=== PATIENT | female | born 1945 | race Caucasian/White ===

== ENCOUNTER 2024-03-30 16:26 | Emergency (ER) | payer MEDICAID, SELFPAY ==
[2024-03-30 16:35] VITALS: BP 157/95; PULSE 97; RESP 18; O2SAT 100; BMI 18.1
--- NOTE | 2024-03-30 17:09 | ED.DIZZY ---
HPI - Dizziness General Time Seen by Provider: 17:10 Date Seen: 03/30/24 Chief Complaint: Dizziness/Vertigo Stated Complaint: Vertigo, headache Time Seen by Provider: 03/30/24 17:07 History of Present Illness HPI Narrative: Janae is a very pleasant 78-year-old female with history of hypertension, hyperlipidemia who comes to the emergency room with 5 days of vertigo type symptoms. Patient notes that she awoke on March 26 with vertigo. She notes that she got up and was unsteady as she walked to the kitchen table. She notes that 1 she was up it seemed to improve a little bit but the associated nausea was persistent especially when she was eating. She notes that throughout the day she seemed to have these symptoms especially when she would look down. By the end of the day she was doing a little bit better. However, the symptoms have continued over the past 5 days. She has not had fever or chills. She notes occasionally she will have a fullness in her right ear and the right side of her head hurts like a headache. It is not present at this time. She has not had a cough cold congestion dysuria hematuria. She denies any numbness or tingling, dragging of her of feet or changes in her speech. She has not had any trauma and she is not currently on any blood thinners. Related Data Home Medications ?Medication ?Instructions ?Recorded ?Confirmed lisinopril 5 mg tablet 5 mg PO DAILY 03/30/24 03/30/24 pravastatin 40 mg tablet 40 mg PO DAILY 03/30/24 03/30/24 Previous Rx's ?Medication ?Instructions ?Recorded meclizine 25 mg tablet 25 mg PO TID PRN #30 tabs 03/30/24 Allergies Allergy/AdvReac Type Severity Reaction Status Date / Time No Known Drug Allergies Allergy Verified 03/30/24 16:40 Review of Systems Status of ROS: Reports: 10 or more systems reviewed and unremarkable except as noted in History and below Const: Denies: fever, chills or fatigue Eyes: Denies: change in vision ENMT: Denies: throat pain, neck pain or nasal congestion Cardio: Reports: lightheadedness; Denies: chest pain, edema, swelling of feet/ankles or shortness of breath with exertion Resp: Denies: shortness of breath or cough GI: Reports: nausea; Denies: abdominal pain, vomiting or diarrhea : Denies: painful urination, urinary frequency or urinary urgency Musculo: Denies: back pain, neck pain or extremity pain Integ/Breast: Denies: rash Neuro: Reports: headache Endo: Denies: fatigue PFSH [facility] Social History Smoking Status: Never smoker How often do you have a drink containing alcohol: monthly or less AUDIT-C Alcohol total score: 1 Non-prescribed substance use: denies use service: No Exam Narrative: Exam Narrative: Alert and oriented in no acute distress. Patient is able to communicate with no difficulty. EOM is full and pupils are equal round and reactive. Head is atraumatic normocephalic. Neck is supple. Eyebrow raise smile symmetrical. Tongue is midline. Heart with regular rate and rhythm and lungs are clear bilaterally. Abdomen soft nontender. Upper and lower extremity strength symmetrical. Dexterity noted throughout. No focal neurological deficits. No unusual lower extremity edema or rashes. Hallpike maneuver shows nystagmus on the right. Const: Vital Signs, click to edit/add: Vital Signs - 24 hr 03/30/24 16:35 Pulse Rate [Pulse Oximeter] 97 Respiratory Rate 18 Blood Pressure [Le ft Upper Arm] 157/95 H Pulse Oximetry 100 Oxygen Delivery Me thod Room Air Documenting provider has reviewed patient's vital signs: yes Course Course ED Course: Differential diagnosis includes but is not limited to stroke, labyrinthitis, benign positional vertigo, electrolyte imbalance, urinary tract infection, illness, temporal arteritis.. At this time will place IV and draw labs to include CBC, comprehensive panel, UA, CRP and troponin. Reevaluation(s) Reevaluation #1: Patient noted to be stable during her time here. Head CT without evidence of acute findings. Troponin is negative, CRP within normal limits white count within normal limits creatinine and kidney function normal LFTs normal. Urinalysis suggest possibly a UTI but patient is asymptomatic at this time. Vital Signs Vital signs: Initial Vital Signs Pulse Rate 97 03/30/24 16:35 Respiratory Rate 18 03/30/24 16:35 Blood Pressure 157/95 H 03/30/24 16:35 Blood Pressure Mean 115 H 03/30/24 16:35 Blood Pressure Position Sitting 03/30/24 16:35 Pulse Oximetry 100 03/30/24 16:35 Oxygen Delivery Method Room Air 03/30/24 16:35 Vital Signs Pulse Rate 97 03/30/24 16:35 Respiratory Rate 18 03/30/24 16:35 Blood Pressure 157/95 H 03/30/24 16:35 Pulse Oximetry 100 03/30/24 16:35 Oxygen Delivery Method Room Air 03/30/24 16:35 Pulse Rate 97 03/30/24 16:35 Respiratory Rate 18 03/30/24 16:35 Blood Pressure 157/95 H 03/30/24 16:35 Pulse Oximetry 100 03/30/24 16:35 Oxygen Delivery Method Room Air 03/30/24 16:35 Medications Administered Medications: Discontinued Medications Generic Name Dose Route Start Last Admin Trade Name Freq PRN Reason Stop Dose Admin Lorazepam 0.25 mg 03/30/24 19:17 03/30/24 19:33 Lorazepam 2 Mg/Ml Inj IVP 03/30/24 19:18 0.25 mg ONCE ONE Administration MDM - Dizziness MDM Narrative Medical decision making narrative: 1. Vertigo-most likely benign positional vertigo. Head CT reassuring, Hallpike maneuver and other exam reassuring with no evidence of stroke-like symptoms. Patient noted to have improvement with 0.25 mg Ativan. She will be discharged home at this time. No evidence of hearing loss lesions in the ear to suggest shingles or other significant viral component. Meclizine 25 mg p.o. t.i.d. p.r.n. Number 30 tablets with 1 refill sent to patient's pharmacy. She depart feeling much better. 2. Abnormal urinalysis-patient has no urinary symptoms but certainly some findings that would trigger a urine culture. At this time because of lack of symptoms will hold off on any antibiotics. Patient will be called if this is positive. 3. Disposition-home at this time with her . Feeling much better. Medical Records Attestation: I reviewed the patient's medical records. Lab Data Attestation: I reviewed the patient's lab results. Labs: Lab Results 03/30/24 03/30/24 Range/Units 17:31 17:45 WBC 7.46 (4.50-11.00) K/uL RBC 4.38 (4.00-5.20) m/uL Hgb 13.2 (12.0-16.0) gm/dL Hct 39.1 (33.0-51.0) % MCV 89 (80-100) fL MCH 30 (26-34) pg MCHC 34 (32-36) gm/dL RDW Coeff of Kay 13.3 (11.5-15.5) % Plt Count 285 (140-440) K/uL Neut % (Auto) 67.3 (42.0-72.0) % Lymph % (Auto) 24.7 (20-44) % Carroll % (Auto) 7.2 (0.0-11.0) % Eos % (Auto) 0.3 (0.0-7.0) % Baso % (Auto) 0.4 (0.0-3.0) % Neut # (Auto) 5.02 (1.7-7.0) K/uL Lymph # (Auto) 1.84 (0.90-2.90) K/uL Carroll # (Auto) 0.50 (0.00-0.90) K/UL Eos # (Auto) 0.02 (0.00-0.50) K/uL Baso # (Auto) 0.03 (0.00-0.30) K/uL Abs Immat Gran (auto) 0.01 (0.00-0.30) K/uL Imm/Tot Granulo (auto) 0.1 % ESR 7 (2-20) mm/hr Sodium 134 L (135-149) mmol/L Potassium 4.8 (3.6-5.1) mmol/L Chloride 100 (96-114) mmol/L Carbon Dioxide 28 (20-32) mmol/L Anion Gap 6 L (7-15) mEq/L BUN 15 (7-30) mg/dL Creatinine 0.7 (0.5-1.5) mg/dL Estimated Creat Clear 34.41 Estimated GFR 89 ml/min Glucose 93 (60-115) mg/dL Calcium 9.6 (8.4-10.6) mg/dL Total Bilirubin 0.4 (0.1-1.5) mg/dL AST 28 (12-35) U/L ALT 22 (4-35) U/L Alkaline Phosphatase 50 (40-150) U/L C-Reactive Protein < 0.5 L (0.5-1.0) mg/dL Total Protein 7.1 (6.0-8.3) g/dL Albumin 4.6 (3.3-5.0) g/dL Urine Color Yellow (Yellow) Urine Appearance Clear (Clear) Urine pH 6.0 (5.0-8.5) Ur Specific [place] 1.015 (1.000-1.030) Urine Protein Negative (Negative) Urine Glucose (UA) Negative (Negative) Urine Ketones 1+ A (Negative) Urine Blood Trace-intact A (Negative) Urine Nitrite Negative (Negative) Urine Bilirubin Negative (Negative) Urine Urobilinogen 0.2 (0.2-1.0) Ur Leukocyte Esterase 1+ A (Negative) Urine RBC 2-5 A (0-2) Urine WBC 5-10 A (0-5) Ur Squamous Epith Cells Few (None-Few) Urine Bacteria Few A (None) POC Troponin I 0.01 (0.01-0.04) ng/ml Imaging Data CT scan - head: Attestation: I have reviewed the pertinent imaging results. Discharge Plan Discharge Clinical Impression: Vertigo Patient Disposition: Home, Self-Care Condition: Improved Additional Instructions: Meclizine is a medication that you may be used to help with vertigo. He can be sedating for some people so please do not use alcohol, drive if using this medication. Recommend follow-up with your primary MD. you may want to have your ears irrigated as there is some wax in them. Return to the emergency room for worsening symptoms, onset of numbness tingling weakness of the body and as needed. Prescriptions: New meclizine 25 mg tablet 25 mg PO TID PRNQty: 30 1RF No Action lisinopril 5 mg tablet 5 mg PO DAILY pravastatin 40 mg tablet 40 mg PO DAILY Follow Up/Referrals: Provider,Not a Local [Primary Care Provider] - Stand Alone Forms: [employer] Info Instructions
--- NOTE | 2024-03-30 17:31 | CRLHL7_ITS ---
For Patients: As a result of the Century Cures Act, medical imaging exams and procedure reports are released immediately into your electronic medical record. You may view this report before your referring provider. If you have questions, please contact your health care provider. INDICATION: Stroke. TECHNIQUE: CT of the head without contrast. Coronal and sagittal reformats are included. COMPARISON: None. FINDINGS: No CT evidence of acute cortical infarct. No loss of ramirez white matter differentiation. No hyperdense vessels to suggest intracranial thrombus. No acute intracranial hemorrhage. No mass effect or midline shift. No hydrocephalus or extra-axial collections. Patchy white matter hypoattenuation, typical for chronic microvascular ischemic change. Moderate generalized parenchymal volume loss. Partially empty sella. Intracranial vascular calcifications. No acute osseous abnormalities. Mastoid air cells and paranasal sinuses are clear. Normal soft tissues. IMPRESSION: IMPRESSION:1. No CT evidence of acute cortical infarct. No acute intracranial hemorrhage. No other acute intracranial findings. Please note that all CT scans at this facility use dose modulation, iterative reconstruction, and/or weight-based dosing when appropriate to reduce radiation dose to as low as reasonably achievable. Dictated by Josue Erickson MD @ 03/30/2024 6:05:28 PM (Electronically Signed)
[2024-03-30 17:54] LABS: Basophils Absolute Auto 0.03 K/uL (0.00-0.30); Basophils Percent Auto 0.4 % (0.0-3.0); Eosinophils Absolute Auto 0.02 K/uL (0.00-0.50); Eosinophils Percent Auto 0.3 % (0.0-7.0); Hematocrit 39.1 % (33.0-51.0); Hemoglobin* 13.2 gm/dL (12.0-16.0); Immature Granulocytes Abs Auto 0.01 K/uL (0.00-0.30); Immature Granulocytes Pct Auto 0.1 %; Lymphocytes Absolute Auto 1.84 K/uL (0.90-2.90); Lymphocytes Percent Auto 24.7 % (20-44); Mean Corpuscular HGB Conc 34 gm/dL (32-36); Mean Corpuscular Hemoglobin 30 pg (26-34); Mean Corpuscular Volume 89 fL (80-100); Monocytes Percent Auto 7.2 % (0.0-11.0); Neutrophils Absolute Auto 5.02 K/uL (1.7-7.0); Neutrophils Percent Auto 67.3 % (42.0-72.0); Platelet Count* 285 K/uL (140-440); RDW Coefficient of Variation % 13.3 % (11.5-15.5); Red Blood Count 4.38 m/uL (4.00-5.20); White Blood Count* 7.46 K/uL (4.50-11.00)
[2024-03-30 17:56] LABS: Troponin, Point-of-Care* 0.01 ng/ml (0.01-0.04)
[2024-03-30 17:58] LABS: Slide Review Reflex No
[2024-03-30 18:13] LABS: Appearance Urine Clear (Clear); Bilirubin Urine Negative (Negative); Blood Urine Trace-intact (Negative); Color Urine Yellow (Yellow); Glucose Urine Negative (Negative); Ketones Urine 1+ (Negative); Leukocyte Esterase Urine 1+ (Negative); Nitrite Urine Negative (Negative); Protein Urine Negative (Negative); Specific Gravity Urine 1.015 (1.000-1.030); Urobilinogen Urine 0.2 (0.2-1.0)
[2024-03-30 18:20] LABS: Albumin* 4.6 g/dL (3.3-5.0); Chloride* 100 mmol/L (96-114)
[2024-03-30 18:21] LABS: Potassium* 4.8 mmol/L (3.6-5.1); Sodium* 134 mmol/L (135-149)
[2024-03-30 18:23] LABS: Bilirubin Total* 0.4 mg/dL (0.1-1.5); Carbon Dioxide* 28 mmol/L (20-32); Creatinine* 0.7 mg/dL (0.5-1.5); Est. Creatinine Clearance* 34.41; Estimated Glomerular Filt Rate 89 ml/min
[2024-03-30 18:24] LABS: Alanine Aminotransferase* 22 U/L (4-35); Alkaline Phosphatase* 50 U/L (40-150); Anion Gap 6 mEq/L (7-15); Aspartate Amino Transferase* 28 U/L (12-35); Blood Urea Nitrogen* 15 mg/dL (7-30); Calcium* 9.6 mg/dL (8.4-10.6); Glucose* 93 mg/dL (60-115); Total Protein* 7.1 g/dL (6.0-8.3)
[2024-03-30 18:27] LABS: C Reactive Protein* < 0.5 mg/dL (0.5-1.0)
--- OUTSIDE RECORDS SUMMARY | 2024-03-30 18:35 | XMS_ITS | Referral Summary ---
Author Organization [facility] Address [address] [place] [id number] Care Team Providers Care [employer] Mill Tender Name Role Phone Carito Hernandez MD Primary Care Provider + [phone] Allergies Active Allergy Reactions Criticality Noted Date Comments Atorvastatin 05/25/2014 Muscle spasms Simvastatin 05/25/2014 Muscle spasms Medications multivitamin, therapeutic with minerals (MULTI-VITAMIN) TABS Take 1 tablet by mouth daily Active Townsend-3 Fatty Acids (OMEGA-3 FISH OIL PO) Take 1 g by mouth 2 times daily (with meals) Active Calcium Carb-Cholecalcif autumn (CALCIUM 600 + D PO) Take 1 tablet by mouth 2 times daily Active Probiotic Product (PROBIOTIC DAILY PO) Take by mouth daily Active Psyllium (METAMUCIL PO) Take by mouth 2 times daily Active Biotin 10 MG CAPS Take 10 mg by mouth daily Active pravastatin (PRAVACHOL) 20 MG tablet Take 20 mg by mouth daily Active Active Problems Problem Noted Date Diagnosed Date 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 Social History Tobacco Use Types Packs/Day Years Used Date Smoking Tobacco: Never Smokeless Tobacco: Never Alcohol Use Standard Drinks/Week Comments Yes 0 (1 standard drink = 0.6 oz pur e alcohol) 3-4 glasses per week Adolescent Education Answer Date Record ed Getting School Help Needed Not on file 12/14 Comments No Sex and Gender Information Value Date Recorded Sex Assigned at Not on file Legal Sex Female 4:36 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 Gender Identity Not on file Sexual Orientation Not on file Last Filed Vital Signs Vital Sign Reading Time Taken Comments Blood Pressure 154/85 10/01/2022 11:58 AM CDT Pulse 81 10/01/2022 11:58 AM CDT Temperature 36.4 C (97.5 F) 10/01/2022 11:58 AM CDT Respiratory Rate 16 10/01/2022 11:5 8 AM CDT Oxygen Saturation 99% 10/01/2022 11: 58 AM CDT Inhaled Oxygen Concentration - - Weight 45.7 kg (100 lb 11.2 oz) 023 11:58 AM CDT Height 160 cm (5' 3) 04/20/2020 11:10 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 Body Mass Index 17.84 04/20/2020 11:10 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 Plan of Treatment Not on file Procedures Procedure Name Priority Date/Time Associated Diagnosis Comments GLUCOSE (EXTERNAL RESULT) Routine 08/22/2022 9:43 AM CDT LIPID PANEL (EXTERNAL RESULT) Routine 08/22/2022 9:43 AM CDT HEPATITIS C (HIM EXTERNAL RESULT) Routine 06/26/2021 1:30 PM CDT DEXA - HIM SCAN Routine 04/25/2021 COLONOSCOPY Routine 05/31/2014 10:48 AM CDT from Last 3 Months or Most Recently Relevant to Health Maintenance Results * Lipid Panel (External Result) (08/22/2022 9:43 AM CDT) Cholesterol (External) 195 100 - 199 mg/dL [facility] Triglycerides (External) 74 <150 mg/dL [facility] HDL Cholesterol (External) 72 >40 mg/dL [facility] LDL Cholesterol Calculated (External) 108 <=130 mg/dL [facility] Non HDL Cholesterol (External) 123 <145 mg/dL [facility] Blood 08/22/2022 9:43 AM CDT Narrative [facility] - 08/22/2022 9:43 AM CDT See Care Everywhere-[facility] us Provider Outside LAB - HIM EXTERNAL RESULT Final Result [facility] [address] * Glucose (External Result) (08/22/2022 9:43 AM CDT) Glucose (External) 86 70 - 99 mg/dL [facility] Blood 08/22/2022 9:43 AM CDT Narrative [facility] - 08/22/2022 9:43 AM CDT See Care Everywhere-[facility] us Provider Outside LAB - HIM EXTERNAL RESULT Final Result Performing Organization Address City/[facility]/ZIP Co de Phone Number [facility] [address] * Hepatitis C (HIM External Result) (06/26/2021 1:30 PM CDT) Hep C HIM See Scanned Document [facility] Comment:Non-Reactive 06/26/2021 1:30 PM CDT Narrative [facility] - 06/26/2021 1:30 PM CDT See Care Everywhere-[facility] us Provider Outside LAB - HIM EXTERNAL RESULT Final Result [facility] [address] * (ABNORMAL) DEXA - HIM Scan (04/25/2021) Anatomical Region Laterality Modality Other Narrative 04/25/2021 See Care Everywhere-[facility] us Provider Outside IMG DEXA ORDERABLES Final Resul t * COLONOSCOPY (05/31/2014 10:48 AM CDT) COLONOSCOPY [facility] Patient Name: Janae Key Procedure Date: 05/31/2014 10:48 AM Date of : 1945 Admit Type: Outpatient Age: 68 Gender: Female Attending MD: Marissa Roper MD Instrument Name: [id number] Procedure: Colonoscopy Indications: Screening for colorectal malignant neoplasm Providers: Marissa Roper MD, Margaret Mendosa RN (Nurse) Referring MD: Medicines: Monitored Anesthesia Care Complications: No immediate complications. Procedure: Pre-Anesthesia Assessment: - Prior to the procedure, a History and Physical was performed, and patient medications and allergies were reviewed. The patient is competent. The risks and benefits of the procedure and the sedation options and risks were discussed with the patient. All questions were answered and informed consent was obtained. Patient identification and proposed procedure were verified by the physician and the nurse in the endoscopy suite. Mental Status Examination: alert and oriented. Airway Examination: normal oropharyngeal airway and neck mobility. Respiratory Examination: clear to auscultation. CV Examination: normal. Prophylactic Antibiotics: The patient does not require prophylactic antibiotics. Prior Anticoagulants: The patient has taken no previous anticoagulant or antiplatelet agents. ASA Grade Assessment: II - A patient with mild systemic disease. After reviewing the risks and benefits, the patient was deemed in satisfactory condition to undergo the procedure. The anesthesia plan was to use moderate sedation / analgesia (conscious sedation). Immediately prior to administration of medications, the patient was re-assessed for adequacy to receive sedatives. The heart rate, respiratory rate, oxygen saturations, blood pressure, adequacy of pulmonary ventilation, and response to care were monitored throughout the procedure. The physical status of the patient was re-assessed after the procedure. After obtaining informed consent, the colonoscope was passed under direct vision. Throughout the procedure, the patient's blood pressure, pulse, and oxygen saturations were monitored continuously. The [id number] was introduced through the anus and advanced to 5 cm into the ileum. The colonoscopy was somewhat difficult due to a tortuous colon. Successful completion of the procedure was aided by using manual pressure. The patient tolerated the procedure well. The quality of the bowel preparation was excellent. Findings: The terminal ileum appeared normal. The entire examined colon appeared normal on direct and retroflexion views. Impression: - The examined portion of the ileum was normal. - The entire examined colon is normal on direct and retroflexion views. Recommendation: - Repeat colonoscopy in 10 years for screening purposes. Procedure Code(s): --- Professional --- 84528, Colonoscopy, flexible, proximal to splenic flexure; diagnostic, with or without collection of specimen(s) by brushing or washing, with or without colon decompression (separate procedure) Diagnosis Code(s): --- Professional --- V76.51, Special screening for malignant neoplasms of colon CPT copyright 2013 [employer]. All rights reserved. The codes documented in this report are preliminary and upon senior data mining analyst review may be revised to meet current compliance requirements. Marissa Roper MD 05/31/2014 11:59 AM Number of Addenda: 0 Note Initiated On: 05/31/2014 10:48 AM Procedure Date: 05/31/2014 10:48:52 AM Scope Withdrawal Time: 0 hours 9 minutes 21 seconds Total Procedure Duration: 0 hours 25 minutes 13 seconds Scope In: 11:29:24 AM Scope Out: 11:54:37 AM RADIOLOGY RESULTS 05/31/2014 10:4 8 AM CDT us Marissa Roper MD PROCEDURES Final Resu lt RADIOLOGY RESULTS from Last 3 Months or Most Recently Relevant to Health Maintenance Insurance [employer] MEDICARE Care Teams [employer] Tender Relationship Specialty [place] [id number] [place] [address] PCP - General Family Medicine 05/25/21
--- OUTSIDE RECORDS SUMMARY | 2024-03-30 18:35 | XMS_ITS | Clinical Summary ---
Author Organization [facility] Address [place], [place] [address] Care Team Providers Care Butt Maker Name Role Phone Carito Hernandez MD Primary Care Provider + [phone] Allergies Active Allergy Reactions Criticality Noted Date Comments Atorvastatin Myalgia 05/25/2014 Muscle spasms Simvastatin Myalgia 05/25/2014 Muscle spasms Medications calcium citrate/vitamin D3 (CALCIUM CITRATE + D ORAL) Take 1 Tablet by mouth. Active multivitamins with minerals tablet Take 1 Tablet by mouth. Active aatxr-1-pyz-epa-dpa -fish oil (FISH OIL) 1,050-1,200 mg cap capsule Take 1 g by mouth. Active Biotin 10,000 mcg capsule Take 10 mg by mouth. Active vit A-vit D3-vit E-vit K 2,000 unit-2000 unit-1,000 mcg cap Take by mouth. 0 1 Active pravastatin (PRAVACHOL) 40 mg tabletIndications:M ixed hyperlipidemia TAKE 1 TABLET BY MOUTH AT BEDTIME 90 Tablet 2 4 Active lisinopriL (PRINIVIL; ZESTRIL) 5 mg tabletIndications:E levated blood pressure reading without diagnosis of hypertension Take 1 Tablet (5 mg) by mouth once daily. 90 Tablet 1 4 Active Active Problems Problem Noted Date Diagnosed Date Protein-calorie malnutrition 06/26/2021 Hyperlipidemia, unspecified 05/30/2020 Fibromyalgia 05/30/2020 Osteoporosis 05/30/2020 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 Encounters Date Type Department Care Team Description 03/30/2024 Nurse Triage [facility] [address] [place] [address], [place] [address] Carito Hernandez MD Dizzy 03/20/2024 11:30 AM ELECTROLYSIS INVESTIGATOR Nurse/Clinic Staff Only [facility] [id number] [place] [address], [place] [address] Blood Pressure 03/20/2024 Travel 03/17/2024 Travel 02/04/2024 11:40 AM ELECTROLYSIS INVESTIGATOR Office Visit [address] [place] [address] Carito Hernandez MD Medication Management; Blood Pressure (She saw her eye doctor, they checked her BP and it was between 185-190/92-95. /She then checked it at a pharmacy BP machine, 140s/70s. /She saw her eye doctor again this month, and it was 155/99.) 02/04/2024 Orders Only [address] [place] [address] Carito Hernandez MD 1 scan: (1-Ord) AV [id number] 02/04/2024 Travel from Last 3 Months Immunizations Name Administration Dates Next Due COVID-19 vaccine (Moderna 100mcg/0.5mL) ELANA MDLola 06/09/2020,05/13/2020 Influenza, High-dose Inactivated 024,12/24/2018,12/27/2017,2015,01/25/2012 Influenza, High-dose Quadriv alent Inactivated 01/07/2023,12/25/2021,12/21/2020,2019 Influenza, IIV3 (Age >=3 years) 12/12/2012,03/08,12/03/2008 Influenza, Inactivated IIV3 (Age 65+ Years) Preserv Free 12/12/2016 Pneumococcal Poly,23-Valent (Pneumovax) 07/16/2018 Pneumococcal conj 13-Valent (Prevnar 13) 01/25/2012 Td (Age >=7 Years) 05/05/2019 Zoster (Shingrix-RZV, recombinant) 10/20/2018, Family History Medical History Relation Name Comments Lung cancer Father Emphysema Mother Relation Name Status Comments Father Mother Social History Tobacco Use Types Packs/Day Years Used Date Smoking Tobacco: Never Smokeless Tobacco: Never Tobacco Cessation:Counseling Given: Yes Alcohol Use Standard Drinks/Week Comments Not Currently 0 (1 standard drink = 0.6 oz pur e alcohol) [facility] Utilities Answer Date Recorded Do you have trouble paying f or utilities (for example, heat, electricity, water, phone)? Yes 09/25/2023 PHQ-2 Answer Date Recorded PHQ-2 TOTAL SCORE 0 09/25/2023 Social Connections Answer Date Recorded Do you often feel lonely or isolated from those around you? 0 09/25/2023 Financial Resource Strain Answer Date R ecorded Difficulty of Paying Living Expenses 3 09/25/2023 Difficulty of Paying Living Expenses Not on file 09/25/2023 Food Insecurity Answer Date Recorded Do you worry your food will run out before you are able to buy more? 1 09/25/2023 Transportation Needs Answer Date Record ed Does lack of transportation keep you from medica l appointments? 1 09/25/2023 Does lack of transportation keep you from work, meetings or getting things that you need? 1 09/25/2023 Housing Stability Answer Date Recorded What is your housing situation today? 1 09/25/2023 Comments No Sex and Gender Information Value Date Recorded Sex Assigned at Not on file Legal Sex Female 8:28 AM ELECTROLYSIS INVESTIGATOR Gender Identity Not on file Sexual Orientation Not on file Obstetrics History Last Filed Vital Signs Vital Sign Reading Time Taken Comments Blood Pressure 124/70 03/20/2024 11:21 AM ELECTROLYSIS INVESTIGATOR Pulse 74 03/20/2024 11:21 AM ELECTROLYSIS INVESTIGATOR Temperature 36.1 C (97 F) 08/22/2022 9:03 AM CDT Respiratory Rate 16 03/20/2024 11:21 AM ELECTROLYSIS INVESTIGATOR Oxygen Saturation 98% 08/22/2022 9:03 AM CDT Inhaled Oxygen Concentration - - Weight 47.2 kg (104 lb) 02/04/2024 11:45 AM ELECTROLYSIS INVESTIGATOR Height 161.3 cm (5' 3.5) 09/25/2023 11:14 AM CD T Body Mass Index 18.13 09/25/2023 11:14 AM CDT Plan of Treatment Health Maintenance Due Date Last Done Comments Tdap 1956 RSV vaccine for adults or (1 - 1-dose 75+ series) 2021 BMI (ht and wt on same day) for age 18+ 09/24/2024 09/25/2023, 08/22/2022, 06/26/2021, Additional history exists Depression screening for age 12+ 09/24/2024 09/25/2023, 08/22/2022, 06/26/2021, Additional history exists Medicare Wellness for age 65+ 09/25/2024, 08/22/2022, 06/26/2021 Tetanus booster 05/05/2029 05/05/2019 Pneumococcal series for age 50+ Completed 9, 01/25/2012 Zoster (shingles) series for age 50+ Completed 10/20/2018, 07/16/2018 Hepatitis C screening for ag e 18-79 Completed 06/26/2021 DEXA/DXA scan for age 65+ Completed 2023, 04/25/2021, 12/27/2017 (Completed outside of [facility]) Influenza for age 65+ Completed 01/06/2024 , 01/07/2023, 12/25/2021, Additional history exists COVID-19 vaccine series Completed 02/07/20 24, 01/28/2023, 02/26/2022, Additional history exists Procedures Procedure Name Priority Date/Time Associated Diagnosis Comments EKG 12 LEAD Routine 02/04/2024 Elevated blood pressure reading without diagnosis of hypertension CT ECG ROUTINE ECG W/LEAST 12 LDS W/I&R Routine 02/04/2024 Elevated blood pressure reading without diagnosis of hypertension XR DXA BONE DENSITY 2 SITES AXIAL Routine 09/25/2023 11:08 AM CDT Osteoporosis ANTI HCV Routine 06/26/2021 1:30 PM CDT Need for hepatitis C screening test from Last 3 Months or Most Recently Relevant to Health Maintenance Results * CT ECG ROUTINE ECG W/LEAST 12 LDS W/I&R (02/04/2024) Carito Hernandez MD PB - CARDIOVASCULAR SYSTEM S ERVICES Final Result * EKG 12 LEAD (02/04/2024) us Carito Hernandez MD EKG ORD Final Result * XR DXA BONE DENSITY 2 SITES AXIAL (09/25/2023 11:08 AM CDT) Anatomical Region Laterality Modality Spine, HIPS, HIPL, HIPR Computed Radiography 09/25/2023 11:0 8 AM CDT Impressions 09/26/2023 7:33 AM CDT OSTEOPOROSIS. T score meets the WHO criteria for osteoporosis at one or more measured sites. The risk of osteoporotic fracture increases approximately two-fold for each standard deviation decrease in T-score. Narrative 09/26/2023 7:33 AM CDT For Patients: As a result of the Cures Act, medical imaging exams and procedure reports are released immediately into your electronic medical record. You may view this report before your referring provider. If you have questions, please contact your health care provider. EXAM: XR DXA BONE DENSITY 2 SITES AXIAL LOCATION: [facility] DATE: 09/25/2023 INDICATION: D. Osteoporosis (must be documented by previous exam) - m81.0 Osteoporosis DEMOGRAPHICS: Age- 78 years. Gender- Female. Menopausal status- Postmenopausal. COMPARISON: 04/25/2021 TECHNIQUE: Dual-energy x-ray absorptiometry (DXA) performed with routine technique. FINDINGS: DXA RESULTS -Lumbar Spine: L1-L4: BMD: 0.789 g/cm2. T-score: -3.3. Z-score: -0.8. -RIGHT Hip Total: BMD: 0.656 g/cm2. T-score: -2.8. Z-score: -0.5. -RIGHT Hip Femoral neck: BMD: 0.658 g/cm2. T-score: -2.7. Z-score: -0.3. -LEFT Hip Total: BMD: 0.690 g/cm2. T-score: -2.5. Z-score: -0.2. -LEFT Hip Femoral neck: BMD: 0.762 g/cm2. T-score: -2.0. Z-score: 0.4. WHO T-SCORE CRITERIA -Normal: T score at or above -1 SD -Osteopenia: T score between -1 and -2.5 SD -Osteoporosis: T score at or below -2.5 SD The World Health Organization (WHO) criteria is applicable to perimenopausal females, postmenopausal females, and men aged 50 years or older. INTERVAL CHANGE -There has been a 3.4% increase in lumbar spine BMD. -There has been a 2.1% increase in bilateral hip BMD. FRACTURE RISK -The FRAX risk calculator is not applicable due to osteoporosis. RECOMMENDATIONS The patient's BMD is consistent with osteoporosis, and he/she is at increased fracture risk. If not currently being treated for low BMD, this would merit treatment according to the Bone Health and Osteoporosis Foundation. Procedure Note Garret Fong MD - 09/26/2023 For Patients: As a result of the Cures Act, medical imagingexams and procedure reports are released immediately into your electronicmedical record. You may view this report before your referring provider.If you have questions, please contact your health care provider. EXAM: XR DXA BONE DENSITY 2 SITES AXIAL LOCATION: [facility] DATE: 09/25/2023 INDICATION: D. Osteoporosis (must be documented by previous exam) - m81.0Osteoporosis DEMOGRAPHICS: Age- 78 years. Gender- Female. Menopausal status-Postmenopausal. COMPARISON: 04/25/2021 TECHNIQUE: Dual-energy x-ray absorptiometry (DXA) performed with routinetechnique. FINDINGS: DXA RESULTS -Lumbar Spine: L1-L4: BMD: 0.789 g/cm2. T-score: -3.3. Z-score: -0.8. -RIGHT Hip Total: BMD: 0.656 g/cm2. T-score: -2.8. Z-score: -0.5. -RIGHT Hip Femoral neck: BMD: 0.658 g/cm2. T-score: -2.7. Z-score: -0.3. -LEFT Hip Total: BMD: 0.690 g/cm2. T-score: -2.5. Z-score: -0.2. -LEFT Hip Femoral neck: BMD: 0.762 g/cm2. T-score: -2.0. Z-score: 0.4. WHO T-SCORE CRITERIA -Normal: T score at or above -1 SD -Osteopenia: T score between -1 and -2.5 SD -Osteoporosis: T score at or below -2.5 SD The World Health Organization (WHO) criteria is applicable toperimenopausal females, postmenopausal females, and men aged 50 years orolder. INTERVAL CHANGE -There has been a 3.4% increase in lumbar spine BMD. -There has been a 2.1% increase in bilateral hip BMD. FRACTURE RISK -The FRAX risk calculator is not applicable due to osteoporosis. RECOMMENDATIONS The patient's BMD is consistent with osteoporosis, and he/she is atincreased fracture risk. If not currently being treated for low BMD, thiswould merit treatment according to the Bone Health and OsteoporosisFoundation. IMPRESSION: OSTEOPOROSIS. T score meets the WHO criteria for osteoporosis at one ormore measured sites. The risk of osteoporotic fracture increasesapproximately two-fold for each standard deviation decrease in T-score. aDmaris Lucas MD DEXA Final Re sult * ANTI HCV (06/26/2021 1:30 PM CDT) Pathologist [facility] HEPATITIS C ANTIBODY Non-React tiburcio Non-React tiburcio 06/26/2021 9:51 PM CDT [facility] Comment:Antibodies to HCV no t detected; does not exclude the possibility of exposure to HCV. Blood BLOOD SPECIMEN / Unknown Venipuncture / Unknown 06/26/2021 1:30 PM CDT 06/26/2021 1:31 PM CDT Carito Hernandez MD SEND OUTS Final Result [facility] [address] [place] [address], [place] from Last 3 Months or Most Recently Relevant to Health Maintenance Insurance [employer] MEDICARE PART B HB ONLY [facility] MEDICARE ADVANTAGE Care Teams Butt Maker Relationship Specialty [place] [id number] [place] [address] PCP - General Family Practice 03/29/15
--- OUTSIDE RECORDS SUMMARY | 2024-03-30 18:35 | XMS_ITS | Clinical Summary ---
Author Organization [facility] Address [address] [place] [address] Care Team Providers Care Machine Shop Apprentice Name Role Phone Carito Hernandez MD Primary Care Provider + [phone] Allergies Active Allergy Reactions Criticality Noted Date Comments Atorvastatin 05/25/2014 Muscle spasms Simvastatin 05/25/2014 Muscle spasms Medications multivitamin, therapeutic with minerals (MULTI-VITAMIN) TABS Take 1 tablet by mouth daily Active [place]-3 Fatty Acids (OMEGA-3 FISH OIL PO) Take [...] on file Legal Sex Female 4:36 AM THERMOSTAT REPAIRER Gender Identity Not on file Sexual Orientation [...] 160 cm (5' 3) 04/20/2020 11:10 AM THERMOSTAT REPAIRER Body Mass Index 17.84 04/20/2020 11:10 AM THERMOSTAT REPAIRER Plan of Treatment Health Maintenance Due Date Last Done Comments ADVANCE CARE PLANNING 1945 ANNUAL REVIEW OF HM ORDERS 1945 FALL RISK ASSESSMENT 07/24/2011 DTAP/TDAP/TD IMMUNIZATION (1 - Tdap) 05/06/2019 05/05/2019 RSV VACCINE (1 - 1-dose 75+ series) 2021 LIPID 08/23/2023 08/22/2022 MEDICARE ANNUAL WELLNESS VISIT 08/23/2023 08/22/2022, 06/26/2021, 02/03/2019 COVID-19 Vaccine ( season) 2023 02/26/2022, 10/30/2021, 01/24/2021, Additional history exists INFLUENZA VACCINE (#1) 2023 , 12/21/2020, 12/11/2019, Additional history exists PHQ-2 (once per calendar year) 2024 GLUCOSE 08/22/2025 08/22/2022, 03/30/2019 DEXA 04/25/2036 04/25/2021 COLONOSCOPY Discontinued 05/31/2014, 05/31/2014 COLORECTAL CANCER SCREENING Discontinued Pneumococcal Vaccine: 50+ Years Completed 07/16/2018, 01/25/2012 ZOSTER IMMUNIZATION Completed 10/20/2018, 9 HEPATITIS C SCREENING Completed 06/26/2021 MAMMO SCREENING Discontinued 06/05/2022, 01/24/2021 CT COLONOGRAPHY Discontinued FIT Discontinued FLEX SIG Discontinued HPV IMMUNIZATION Aged Out No longer e ligible based on patient's age to complete this topic MENINGITIS IMMUNIZATION Aged Out No l onger eligible based on patient's age to complete this topic RSV MONOCLONAL ANTIBODY Aged Out No l onger eligible based on patient's age to complete this topic sDNA (Cologuard) Discontinued Procedures Procedure Name Priority Date/Time Associated Diagnosis [...] Cholesterol (External) 195 100 - 199 mg/dL [facility] Triglycerides (External) 74 <150 mg/dL [facility] HDL Cholesterol (External) 72 >40 mg/dL [facility] LDL Cholesterol Calculated (External) 108 <=130 mg/dL [facility] Non HDL Cholesterol (External) 123 <145 mg/dL [facility] Blood 08/22/2022 9:43 AM CDT Narrative [facility] - 08/22/2022 9:43 AM CDT See Care Everywhere[facility] Provider Outside LAB - HIM EXTERNAL RESULT Final Result [facility] [address] [place] [address], [facility] * Glucose (External Result) (08/22/2022 9:43 AM CDT) Glucose (External) 86 70 - 99 mg/dL [facility] Blood 08/22/2022 9:43 AM CDT Narrative [facility] - 08/22/2022 9:43 AM CDT See Care Everywhere[facility] [employer] [facility] us Provider Outside LAB - HIM EXTERNAL RESULT Final Result Performing Organization Address [facility]/ZIP Co de Phone Number [facility] [address] * Hepatitis C (HIM External Result) (06/26/2021 1:30 PM CDT) Hep C HIM See Scanned Document [facility] Comment:Non-Reactive 06/26/2021 1:30 PM CDT Narrative [facility] - 06/26/2021 1:30 PM CDT See Care Everywhere-[employer] [facility] us Provider Outside LAB - HIM EXTERNAL RESULT Final Result Performing Organization Address [facility] Co de Phone Number [facility] [address] * (ABNORMAL) DEXA - HIM Scan (04/25/2021) Anatomical Region Laterality Modality Other Narrative 04/25/2021 See Care Everywhere[facility] us Provider Outside IMG DEXA ORDERABLES Final Resul t * COLONOSCOPY (05/31/2014 10:48 AM CDT) COLONOSCOPY [facility] Patient Name: Janae Key Procedure Date: 05/31/2014 10:48 AM Date of : 1945 Admit Type: Outpatient Age: 68 Gender: Female Attending MD: Marissa Roper MD Instrument Name: [id number] Procedure: Colonoscopy Indications: Screening for colorectal malignant neoplasm Providers: Marissa Roper MD, Margaret Mendosa, RN (Nurse) Referring MD: Medicines: Monitored Anesthesia [...] oxygen saturations were monitored continuously. The [id number] was introduced through the anus and advanced [...] screening purposes. Procedure Code(s): --- Professional --- 75928, Colonoscopy, flexible, proximal to splenic flexure; diagnostic, with or without collection of specimen(s) by brushing or washing, with or without colon decompression (separate procedure) Diagnosis Code(s): --- Professional --- V76.51, Special screening for malignant neoplasms of colon CPT copyright 2013 [employer]. All rights reserved. The codes documented in this report are preliminary and upon supervisor pole yard review may be revised to meet current [...] Most Recently Relevant to Health Maintenance Insurance [facility] MEDICARE Care Teams Machine Shop Apprentice Relationship Specialty [place] [id number] [place] [address] PCP - General Family Medicine 05/25/21
[2024-03-30 19:02] LABS: Bacteria Urine Few; Squamous Epithelial Cell Urine Few (None-Few)
[2024-03-30] MEDS: LORazepam 2 MG/ML inj 0.25 MG IVP (19:33)
[2024-03-30 19:37] LABS: Erythrocyte SedimentationRate* 7 mm/hr (2-20)
== END 2024-03-30 19:52 | disposition home or self-care (01) ==
PROVIDERS: Emergency Provider Family Medicine
DX: R42 Dizziness and giddiness (principal); R39.9 Unspecified symptoms and signs involving the genitourinary system
CPT/HCPCS: 36415; 70450; 80053; 81001; 84484; 85025; 85651; 86140; 87086; 96374; 99283; 99284; J2060